=== PATIENT | female | born 1960 | race Caucasian/White ===

== ENCOUNTER 2017-08-26 06:01 | Day surgery (SDC) | payer OTHER ==
[2017-08-26] MEDS: SOD CHLORIDE 0.9% 1,000 ML IV (06:00)
[2017-08-26] MEDS ORDERED: ROCURONIUM 50 MG INJ (07:54)
[2017-08-26] MEDS ORDERED: SUCCINYLCHOLINE CHLORIDE 100 MG/5 ML SYG IV (07:54)
[2017-08-26] MEDS ORDERED: NEOSTIGMINE 3 MG/3 ML SYRINGE (07:54)
[2017-08-26] MEDS ORDERED: GLYCOPYRROLATE 0.4 MG INJ ×2 (07:54→08:06)
[2017-08-26] MEDS ORDERED: LIDOCAINE 2% (SDV) 5 ML INJ (07:54)
[2017-08-26] MEDS ORDERED: PROPOFOL 20 ML (07:54)
[2017-08-26] MEDS ORDERED: MEPERIDINE 100 MG INJ (07:55)
[2017-08-26] MEDS ORDERED: ONDANSETRON 4 MG INJ (08:05)
[2017-08-26] MEDS: CLINDAMYCIN 600 MG/D5W (PMX) 50 ML IVPB (08:32)
[2017-08-26] MEDS: BUPIVACAINE 0.25% (MPF) 30 ML INJ (08:36)
[2017-08-26] MEDS ORDERED: HYDROmorphONE (0.2 MG/ML) 10ML SYG IV ×3 (09:25→09:30)
[2017-08-26] MEDS: HYDROmorphONE (0.2 MG/ML) 10ML SYG IV (09:28)
[2017-08-26] MEDS ORDERED: ONDANSETRON 4 MG INJ IV (09:30)
[2017-08-26] MEDS ORDERED: EPHEDrine SULFATE 50 MG/5 ML SYG IV (09:30)
[2017-08-26] MEDS ORDERED: MIDAZOLAM 1 MG/ML 2 ML INJ IV (09:30)
[2017-08-26] MEDS ORDERED: HYDROCODONE/APAP (5/325) TAB PO (09:30)
[2017-08-26] MEDS ORDERED: hydrALAzine 20 MG INJ IV (09:30)
[2017-08-26] MEDS ORDERED: OXYCODONE/ACETAMINOPHEN (5/325) TAB PO (09:30)
[2017-08-26] MEDS ORDERED: MEPERIDINE 25 MG INJ IV (09:30)
[2017-08-26] MEDS ORDERED: FENTAnyl 50 MCG/ML VIAL IV ×3 (09:30)
[2017-08-26] MEDS ORDERED: METOCLOPRAMIDE 10 MG INJ IV (09:30)
[2017-08-26] MEDS ORDERED: LABETALOL HCL 20MG INJ IV (09:30)
[2017-08-26] MEDS ORDERED: DIPHENHYDRAMINE 50 MG INJ IV (09:30)
[2017-08-26] MEDS: OXYCODONE/ACETAMINOPHEN (5/325) TAB PO (09:57)
== END 2017-08-26 10:55 | disposition home or self-care (01) ==
LOC: SDS 06:01
DX: K80.10 Calculus of gallbladder with chronic cholecystitis without obstruction (principal); I10 Essential (primary) hypertension; I25.2 Old myocardial infarction; I25.10 Atherosclerotic heart disease of native coronary artery without angina pectoris; F17.200 Nicotine dependence, unspecified, uncomplicated
CPT/HCPCS: 47562; 88304

== ENCOUNTER → 2017-12-19 | Outpatient (CLI) | payer OTHER | END | disposition home or self-care (01) | LOC: HKI 08:16 | DX: S32.592D Other specified fracture of left pubis, subsequent encounter for fracture with routine healing (principal); V80.010D Animal-rider injured by fall from or being thrown from horse in noncollision accident, subsequent encounter | CPT/HCPCS: 72170 ==

== ENCOUNTER → 2018-01-05 | Outpatient (CLI) | payer OTHER | END | disposition home or self-care (01) | LOC: HKI 13:39 | DX: S32.592D Other specified fracture of left pubis, subsequent encounter for fracture with routine healing (principal); X58.XXXD Exposure to other specified factors, subsequent encounter | CPT/HCPCS: 72170 ==

== ENCOUNTER → 2018-03-27 | Outpatient (CLI) | payer OTHER | END | disposition home or self-care (01) | LOC: HKI 08:44 | DX: S32.592D Other specified fracture of left pubis, subsequent encounter for fracture with routine healing (principal); W19.XXXD Unspecified fall, subsequent encounter | CPT/HCPCS: 72170 ==

== ENCOUNTER → 2018-05-15 | Outpatient (CLI) | payer OTHER | END | disposition home or self-care (01) | LOC: HKI 08:43 | DX: S86.912D Strain of unspecified muscle(s) and tendon(s) at lower leg level, left leg, subsequent encounter (principal); X58.XXXD Exposure to other specified factors, subsequent encounter | CPT/HCPCS: 73564; 73564-RT ==

== ENCOUNTER → 2018-07-04 | Outpatient (CLI) | payer OTHER | END | disposition home or self-care (01) | LOC: HKI 14:22 | DX: M23.251 Derangement of posterior horn of lateral meniscus due to old tear or injury, right knee (principal) | CPT/HCPCS: Z7500 ==

== ENCOUNTER → 2018-09-12 | Outpatient (CLI) | payer OTHER | END | disposition home or self-care (01) | LOC: HKI 14:04 | DX: M25.511 Pain in right shoulder (principal) | CPT/HCPCS: 73030; 73030-RT ==

== ENCOUNTER 2018-12-07 07:42 | Day surgery (SDC) | payer OTHER ==
[~2018-12-07 07:42] MED LIST: CEFAZOLIN 2 GM/50 ML (PMX) 50 ML IVPB
[2018-12-07] MEDS ORDERED: CLINDAMYCIN 900 MG/D5W (PMX) 50 ML IVPB (09:43)
[2018-12-07] MEDS ORDERED: HYDROmorphONE 2 MG/ML SYG (09:43)
[2018-12-07] MEDS ORDERED: LIDOCAINE 2% (SDV) 5 ML INJ (09:43)
[2018-12-07] MEDS ORDERED: FAT EMULSION 20% 250 ML IV (09:43)
[2018-12-07] MEDS ORDERED: MIDAZOLAM 1 MG/ML 2 ML INJ (09:43)
[2018-12-07] MEDS ORDERED: PROPOFOL 20 ML (09:43)
[2018-12-07] MEDS: SOD CHLORIDE 0.9% 1,000 ML IV (09:44)
[2018-12-07] MEDS ORDERED: DEXAMETHASONE 4 MG/ML 5 ML INJ (10:45)
[2018-12-07] MEDS ORDERED: ONDANSETRON 4 MG INJ (10:45)
[2018-12-07] MEDS: ISOSULFAN BLUE 1% 5 ML INJ SC (10:51)
[2018-12-07] MEDS ORDERED: EPHEDrine 25 MG/5 ML SYG (10:59)
[2018-12-07] MEDS ORDERED: PHENYLephrine (100 MCG/ML) 10ML SYG (11:16)
[2018-12-07] MEDS ORDERED: hydrALAzine 20 MG INJ IV (11:30)
[2018-12-07] MEDS ORDERED: OXYCODONE/ACETAMINOPHEN (5/325) TAB PO (11:30)
[2018-12-07] MEDS ORDERED: LABETALOL HCL 20MG INJ IV (11:30)
[2018-12-07] MEDS ORDERED: ALBUTEROL 0.083% (NEB) 2.5 MG/3 ML AMP HHN (11:30)
[2018-12-07] MEDS ORDERED: HYDROmorphONE 1 MG/5 ML IV SYRINGE IV (11:30)
[2018-12-07] MEDS ORDERED: MIDAZOLAM 1 MG/ML 2 ML INJ IV (11:30)
[2018-12-07] MEDS ORDERED: MEPERIDINE 25 MG INJ IV (11:30)
[2018-12-07] MEDS ORDERED: HYDROCODONE/APAP (7.5/325) TAB PO (12:00)
[2018-12-07] MEDS ORDERED: FENTAnyl 50 MCG/ML VIAL (12:09)
[2018-12-07] MEDS: OXYCODONE/ACETAMINOPHEN (5/325) TAB PO (12:21)
[2018-12-07] MEDS: ONDANSETRON 4 MG INJ IV (12:23)
[2018-12-07] MEDS: HYDROmorphONE 1 MG/5 ML IV SYRINGE IV ×2 (12:27→12:36)
== END 2018-12-07 14:20 | disposition home or self-care (01) ==
LOC: SDS 07:42
DX: D05.12 Intraductal carcinoma in situ of left breast (principal); I10 Essential (primary) hypertension; E78.5 Hyperlipidemia, unspecified; F17.200 Nicotine dependence, unspecified, uncomplicated; Z79.82 Long term (current) use of aspirin
CPT/HCPCS: 19301; 88307; 88331